=== PATIENT | female | born 1990 | race Caucasian/White ===

== ENCOUNTER 2017-08-19 18:11 | Emergency (ER) | payer BC ==
[2017-08-19 19:20] LABS: BASO % 0.5 % (0-6); EOS % 3.5 % (0-6); GRAN % 61.4 % (47-80); HEMATOCRIT 40.9 % (35.0-47.0); HEMOGLOBIN 13.9 gm/dl (11.6-16.0); LYMPH % 28.2 % (16-45); MEAN CELL VOLUME 87.2 fl (81-97); MEAN CORPUSCULAR HEMOGLOBIN 29.6 pg (27-33); MEAN PLATELET VOLUME 9.4 fl (7.4-10.4); MONO % 6.4 % (0-9); PLATELET COUNT 241 K/uL (130-400); RED BLOOD COUNT 4.69 M/uL (3.80-5.40); RED CELL DISTRIBUTION WIDTH 12.7 % (11.5-14.5)
[2017-08-19 19:29] LABS: BLOOD UREA NITROGEN 12 mg/dL (6-20); CREATININE 0.6 mg/dL (0.5-0.9); EST GLOMERULAR FILTRATION RATE > 60 mL/min
[2017-08-19 19:30] LABS: TOTAL PROTEIN 7.1 g/dL (6.6-8.7)
[2017-08-19 19:32] LABS: GLUCOSE,RANDOM 91 mg/dL (74-109)
[2017-08-19 19:34] LABS: ALB/GLOB RATIO 1.6 (1.1-1.8); ALBUMIN 4.4 g/dL (4.0-5.0); ALT/SGPT 14 U/L (<33); AST/SGOT 14 U/L (10.0-35.0)
[2017-08-19 19:35] LABS: ALKALINE PHOSPHATASE 58 U/L (35-104)
[2017-08-19] MEDS ORDERED: 0.9 % SODIUM CHLORIDE 1,000 ML BAG IV ONE (19:39)
[2017-08-19 19:55] LABS: URINE APPEARANCE CLEAR; URINE BILIRUBIN NEGATIVE (NEGATIVE); URINE BLOOD NEGATIVE (NEGATIVE); URINE COLOR YELLOW; URINE GLUCOSE (UA) NEGATIVE (NEGATIVE); URINE KETONE NEGATIVE (NEGATIVE); URINE LEUKOCYTE ESTERASE TRACE (NEGATIVE); URINE NITRITE NEGATIVE (NEGATIVE); URINE PROTEIN NEGATIVE (NEGATIVE); URINE UROBILINOGEN 0.2 E.U./dL (0.20 - 1.00)
[2017-08-19 20:10] LABS: HCG,QUALITATIVE URINE NEGATIVE (NEGATIVE); URINE BACTERIA FEW; URINE EPITHELIAL CELLS 0 - 2 (FEW); URINE RBC NONE SEEN (NONE SEEN); URINE WBC 0 - 2 (0-2/hpf)
--- NOTE | 2017-08-19 20:17 | Emergency Department Record ---
History of Present Illness - General Chief Complaint: Syncope Stated Complaint: NEAR SYNCOPY, DIZZY AND NECK PAIN Time Seen by Provider: 08/19/17 18:52 Source: Patient Mode of Arrival: Ambulatory Limitations: No limitations - History of Present Illness Initial Comments: pt stood up suddenly and felt lightheaded and like she might pass out. she felt she should not go to work and needed to get checked out.. she has had a bad disc in her neck and recently had an mri Complaint: Almost passed out Onset/Timin -: Days(s) Prodromal Symptoms: None -: Second(s) Injuries Sustained Associated with Event: Neck Current Symptoms: Other Context: At rest, Standing up Treatments Prior to Arrival: None - [place] Coma Scale Eye Response: (4) Open spontaneously Motor Response: (6) Obeys commands Verbal Response: (5) Oriented Eric Total: 15 - Symptoms of Stroke Onset of Symptoms Date: 08/19/17 Onset of Symptoms Time: 16:00 Symptom Onset Unknown: No Symptoms of stroke: Dizziness, Unsteady When Walking Baseline State: Baseline State - Related Data Home Medications Medication Instructions Recorded Confirmed Last Taken Albuterol Sulfate [Proair Hfa] 1 puff INH ASDIR PRN 08/19/17 08/19/17 Unknown Meloxicam [Meloxicam] 15 mg PO ASDIR PRN 08/19/17 08/19/17 08/12/17 Phentermine HCl [Phentermine HCl] 37.5 mg PO DAILY 08/19/17 08/19/17 08/18/17 Allergies Allergy/AdvReac Type Severity Reaction Status Date / Time amoxicillin [From Augmentin] Allergy SHORTNESS Verified 08/19/17 19:07 OF BREATH cefaclor [From Ceclor] Allergy SHORTNESS Verified 08/19/17 19:07 OF BREATH clavulanic acid Allergy SHORTNESS Verified 08/19/17 19:07 [From Augmentin] OF BREATH naproxen [From Aleve] Allergy ASTHMA Verified 08/19/17 19:07 sulfamethoxazole Allergy PT UNSURE Verified 08/19/17 19:07 [From Bactrim] OF REACTION trimethoprim [From Bactrim] Allergy PT UNSURE Verified 08/19/17 19:07 OF REACTION Travel Screening - Travel/Exposure Within Last 30 Days Have you traveled within the last 30 days?: No - Travel/Exposure Within Last Year Have you traveled outside the [place] in the last year?: Yes Location Detail:: [place] - Additonal Travel Details Have you been exposed to anyone with a communicable illness?: No - Travel Symptoms Symptom Screening: None Review of Systems Reviewed: No additional complaints except as noted below Constitutional: Reports: As per HPI. Denies: Chills, Fever, Malaise, Night sweats, Weakness, Weight change Eyes: Reports: As per HPI. Denies: Eye discharge, Eye pain, Photophobia, Vision change ENT: Reports: As per HPI. Denies: Congestion, Dental pain, Ear pain, Epistaxis , Hearing loss, Throat pain Respiratory: Reports: As per HPI. Denies: Cough, Dyspnea, Hemoptysis, Stridor, Wheezes Cardiovascular: Reports: As per HPI. Denies: Arrhythmia, Chest pain, Dyspnea on exertion, Edema, Murmurs, Orthopnea, Palpitations, Paroxysmal nocturnal dyspnea, Rheumatic Fever, Syncope Endocrine: Reports: As per HPI. Denies: Fatigue, Heat or cold intolerance, Polydipsia, Polyuria Gastrointestinal: Reports: As per HPI. Denies: Abdominal pain, Constipation, Diarrhea, Hematemesis, Hematochezia, Melena, Nausea, Vomiting Genitourinary: Reports: As per HPI. Denies: Abnormal menses, Discharge, Dyspareunia, Dysuria, Frequency, Hematuria, Incontinence, Retention, Urgency Musculoskeletal: Reports: As per HPI. Denies: Arthralgia, Back pain, Gout, Joint swelling, Myalgia, Neck pain Skin: Reports: As per HPI. Denies: Bruising, Change in color, Change in hair/ nails, Lesions, Pruritus, Rash Neurological: Reports: As per HPI. Denies: Abnormal gait, Confusion, Headache, Numbness, Paresthesias, Seizure, Tingling, Tremors, Vertigo, Weakness Psychiatric: Reports: As per HPI. Denies: Anxiety, Auditory hallucinations, Depression, Homicidal thoughts, Suicidal thoughts, Visual hallucinations Hematological/Lymphatic: Reports: As per HPI. Denies: Anemia, Blood Clots, Easy bleeding, Easy bruising, Swollen glands Past Medical History - SOCIAL HISTORY Smoking Status: Never smoker Alcohol Use: None Drug Use: Heavy Drug Use Detail:: Marijuana - RESPIRATORY Hx Respiratory Disorders: Yes Hx Asthma: Yes - CARDIOVASCULAR Hx Cardio Disorders: No - NEURO Hx Neuro Disorders: No - GI Hx GI Disorders: No - Hx Genitourinary Disorders: No - ENDOCRINE Hx Endocrine Disorders: No - MUSCULOSKELETAL Hx Musculoskeletal Disorders: Yes Comment:: ruptured disk in neck - PSYCH Hx Psych Problems: No - HEMATOLOGY/ONCOLOGY Hx Hematology/Oncology Disorders: No Family Medical History Any Significant Family History?: No Physical Exam - General General Appearance: Alert, Oriented x3, Cooperative, No acute distress - Head Head exam: Normal inspection - Eye Eye exam: Normal appearance, PERRL, EOMI Pupils: Normal accommodation - ENT ENT exam: Normal exam, Mucous membranes moist, Normal external ear exam, Normal orophraynx Ear exam: Normal external inspection. negative: External canal tenderness Nasal Exam: Normal inspection. negative: Discharge, Sinus tenderness Mouth exam: Normal external inspection, Tongue normal Teeth exam: Normal inspection. negative: Dental caries Throat exam: Normal inspection. negative: Tonsillar erythema, Tonsillar exudate - Neck Neck exam: Normal inspection, Full ROM. negative: Tenderness - Respiratory Respiratory exam: Normal lung sounds bilaterally. negative: Respiratory distress - Cardiovascular Cardiovascular Exam: Regular rate, Normal rhythm, Normal heart sounds - GI/Abdominal GI/Abdominal exam: Soft, Normal bowel sounds. negative: Tenderness - Rectal Rectal exam: Deferred - exam: Deferred - Extremities Extremities exam: Normal inspection, Full ROM, Normal capillary refill. negative: Tenderness - Back Back exam: Reports: Normal inspection, Full ROM. Denies: Muscle spasm, Rash noted, Tenderness - Neurological Neurological exam: Alert, CN II-XII intact, Normal gait, Oriented X3 - Psychiatric Psychiatric exam: Normal affect, Normal mood - Skin Skin exam: Dry, Intact, Normal color, Warm Course Vital Signs 08/19/17 19:09 Temperature 98.4 F Pulse Rate 67 Respiratory 12 Rate Blood Pressure 122/86 Pulse Ox 100 - Reevaluation(s) Reevaluation #1: 08/19/17 22:17 pt feels better Medical Decision Making - Lab Data Result diagrams: 08/19/17 19:15 08/19/17 19:15 Lab Results 08/19/17 08/19/17 08/19/17 Range/Units 19:15 19:15 19:45 WBC 6.0 (4.2-12.2) K/uL RBC 4.69 (3.80-5.40) M/uL Hgb 13.9 (11.6-16.0) gm/dl Hct 40.9 (35.0-47.0) % MCV 87.2 (81-97) fl MCH 29.6 (27-33) pg MCHC 34.0 (32-36) g/dl RDW 12.7 (11.5-14.5) % Plt Count 241 (130-400) K/uL MPV 9.4 (7.4-10.4) fl Gran % 61.4 (47-80) % Lymphocytes % 28.2 (16-45) % Monocytes % 6.4 (0-9) % Eosinophils % 3.5 (0-6) % Basophils % 0.5 (0-6) % Sodium 142 (136-145) mmol/L Potassium 4.2 (3.4-4.5) mmol/L Chloride 100 (98-107) mmol/L Carbon Dioxide 31.0 H (22-29) mmol/L Anion Gap 11.0 (7-16) BUN 12 (6-20) mg/dL Creatinine 0.6 (0.5-0.9) mg/dL Estimated GFR > 60 mL/min Random Glucose 91 (74-109) mg/dL Calcium 9.1 (8.6-10.0) mg/dL Total Bilirubin 0.40 (0.2-1.0) mg/dL AST 14 (10.0-35.0) U/L ALT 14 (<33) U/L Alkaline Phosphatase 58 (35-104) U/L Total Protein 7.1 (6.6-8.7) g/dL Albumin 4.4 (4.0-5.0) g/dL Globulin 2.7 (1.4-4.8) gm/dL Albumin/Globulin Ratio 1.6 (1.1-1.8) Urine Color Yellow Urine Appearance Clear Urine pH 7.0 (5.0-8.0) Ur Specific [place] 1.020 (1.002-1.030) Urine Protein Negative (NEGATIVE) Urine Glucose (UA) Negative (NEGATIVE) Urine Ketones Negative (NEGATIVE) Urine Blood Negative (NEGATIVE) Urine Nitrite Negative (NEGATIVE) Urine Bilirubin Negative (NEGATIVE) Urine Urobilinogen 0.2 (0.20 - 1.00) E.U./dL Ur Leukocyte Esterase Trace H (NEGATIVE) Disposition Disposition: Discharge Clinical Impression: Near syncope Condition: (1) Good Instructions: Near Syncope (ED) Additional Instructions: follow up with family doctor on tuesday. return sooner if worse. push fluids. rise slowly Forms: Patient Portal Access Quality - Quality Measures Quality Measures: N/A - Blood Pressure Screening Does Patient Have Any of the Following: No Blood Pressure Classification: Pre-Hypertensive BP Reading Systolic Measurement: 122 Diastolic Measurement: 86 Screening for High Blood Pressure: < Pre-Hypertensive BP, F/U Documented > [ [id number]] Pre-Hypertensive Follow-up Interventions: Follow-up with rescreen every year.
[2017-08-19] MEDS ORDERED: KETOROLAC 30 MG/ML VIAL IVP ONE (21:29)
--- NOTE | 2017-08-22 06:32 | CT SCAN REPORT ---
DATE: 08/19/2017. EXAM: CT SCAN OF THE HEAD. HISTORY: Blurry vision and headache. TECHNIQUE: Serial axial CT scan of the head is performed at 2.5 mm intervals from the base of the skull to the apex without the use of intravenous contrast. Sagittal and coronal reconstructions are provided. COMPARISON: No comparison CT scans are available. FINDINGS: The ventricles, cisterns, and sulci appear within normal limits for size, shape, and attenuation. There is no mass or mass effect. The urbina and white differentiation appear within normal limits. Bone windows demonstrate no CT evidence of any fracture or dislocation of the skull. Paranasal sinuses are unremarkable. IMPRESSION: NO CT EVIDENCE OF AN ACUTE INTRACRANIAL PROCESS. JOB NUMBER: [id number] [facility]
== END 2017-08-19 22:28 | disposition home or self-care (01) ==
LOC: ER 18:11
DX: R55 Syncope and collapse (principal); R51 Headache; M54.2 Cervicalgia; R26.81 Unsteadiness on feet
CPT/HCPCS: 99284 ×2; 96374; 96361; 85025; 80053; 81001; 81025; 70450; 93005; 93010; J1885; J7030